=== PATIENT | male | born 1970 | race Caucasian/White ===

== ENCOUNTER 2019-03-24 00:22 | Emergency (ER) | payer OTHER ==
[~2019-03-24] VITALS: Ht 167.6 cm; Wt 90.0 kg
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
[2019-03-24 02:26] VITALS: BP 120/82
--- NOTE | 2019-03-24 02:26 | NUR ---
ALL RESULTS BACK AT THIS TIME CHART UP FOR RECHECK
== END 2019-03-24 02:59 ==
LOC: ED 02:53
DX: S39.012A Strain of muscle, fascia and tendon of lower back, initial encounter (principal); I10 Essential (primary) hypertension; V59.49XA Driver of pick-up truck or van injured in collision with other motor vehicles in traffic accident, initial encounter; Y93.89 Activity, other specified; Y92.410 Unspecified street and highway as the place of occurrence of the external cause; Y99.8 Other external cause status
CPT/HCPCS: 72110; 99283